=== PATIENT | female | born 1960 | race Hispanic/Latino ===

== ENCOUNTER → 2020-03-16 | Outpatient (CLI) | payer OTHER ==
--- NOTE | 2020-03-16 17:44 | Diagnostic Imaging Report ---
CT BRAIN WO HISTORY: Trauma COMPARISON: None. TECHNIQUE: Noncontrast axial scans were obtained from skull base to the vertex. Coronal and sagittal reconstructions obtained from the axial data. One or more of the following dose reduction techniques were used: Automated exposure control, adjustment of the mA and/or kV according to patient size, and/or utilization of iterative reconstruction technique. DISCUSSION: Scalp/Skull: Unremarkable. Brain sulci: Mildly prominent. Ventricles: Mild compensatory dilatation. Extra-axial spaces: No masses or fluid collections. Parenchyma: Carotid siphon calcifications are present. No mass, hemorrhage, or large vascular territory acute infarct. Dural sinuses: No abnormal densities. Sellar/Suprasellar region: Intact. Skull base: Intact. Incidental findings: None. IMPRESSION: 1. No acute intracranial abnormalities. 2. Mild generalized cerebral volume loss. Multiple attempts to notify ordering physician were made at 5:39 PM on 03/16/2020. Signed by: Dr. Brain Vazquez M.D. on 03/16/2020 5:41 PM
== END ==
LOC: CT 16:57
PROVIDERS: ATTEND Family Medicine
DX: S09.90XA Unspecified injury of head, initial encounter (principal); H57.04 Mydriasis; R51.9 Headache, unspecified
CPT/HCPCS: 70450